=== PATIENT | male | born 1965 | race Caucasian/White ===

== ENCOUNTER → 2018-09-05 | Outpatient (CLI) | payer BC ==
--- NOTE | 2018-09-05 10:41 | PCVCIMAG ---
APPROVED REPORT Study performed: 09/05/2018 08:20:41 EXAM: Comprehensive 2D, Doppler, and color-flow Echocardiogram Patient Location: Echo lab Room #: 2Status: routine BSA: 2.36 HR: 65 bpmBP: 160/100 mmHg Rhythm: NSR Other Information Study Quality: Good Risk Factors: Cardiac Risk Factors: HTN, Hyperlipidemia, Elevated Cor Ca+ Indications CAD Hypertension/HDD 2D Dimensions IVSd: 9.37 (7-11mm)LVOT Diam: 22.65 (18-24mm) LVDd: 52.41 mm PWd: 8.11 (7-11mm)Ascending Ao: 32.79 (22-36mm) LVDs: 31.01 (25-40mm) Left Atrium: 36.59 (27-40mm) Aortic Root: 26.56 mm LV Single Plane 4CH: 58.14 % LV Single Plane 2CH: 55.58 % Biplane EF: 57.8 % Volumes Left Atrial Volume (Systole) Single Plane 4CH: 60.71 mLSingle Plane 2CH: 50.62 mL Biplane LA Volume: 56.00 mLLA ESV Index: 24.00 mL/m2 Aortic Valve AoV Peak Main.: 1.17 m/s AO Peak Gr.: 5.50 mmHgLVOT Max P.02 mmHg LVOT Max V: 1.00 m/s MURPHY Vmax: 3.44 cm2 Mitral Valve E/A Ratio: 1.1 MV Decel. Time: 234.04 ms MV E Max Main.: 0.81 m/s MV A Main.: 0.76 m/s IVRT: 62.28 ms TDI E/Lateral E': 6.23E/Medial E': 9.00 Medial E' Main.: 0.09 m/s Lateral E' Main.: 0.13 m/s Pulmonary Valve PV Peak Main.: 1.31 m/sPV Peak Gr.: 7.06 mmHg Pulmonary Vein P Vein S: 0.43 m/sP Vein A: 0.26 m/s P Vein D: 0.52 m/sP Vein A Dur.: 65.7 msec P Vein S/D Ratio: 0.83 Tricuspid Valve TR Peak Main.: 1.89 m/s TR Peak Gr.: 14.26 mmHg TV Vmax: 0.67 m/sPA Pressure: 21.00 mmHg Left Ventricle The left ventricle is normal size. There is normal LV segmental wall motion. There is normal left ventricular wall thickness. Left ventricular systolic function is normal. The left ventricular ejection fraction is within the normal range. LVEF is 55-60%. The left ventricular diastolic function is normal. Right Ventricle The right ventricle is normal size. The right ventricular systolic function is normal. Atria The left atrium size is normal. The right atrium size is normal. Aortic Valve Aortic valve is trileaflet. No aortic regurgitation is present. There is no aortic valvular stenosis. Mitral Valve The mitral valve is normal in structure. There is no mitral valve regurgitation noted. No evidence of mitral valve stenosis. Tricuspid Valve The tricuspid valve is normal in structure. Trace to mild tricuspid regurgitation with a PA pressure of 21 mmHg No apparent pulmonary hypertension.. Pulmonic Valve The pulmonary valve is normal in structure. Trace pulmonic regurgitation. Great Vessels The aortic root is normal in size. The ascending aorta is normal in size. Aortic arch is normal in caliber. IVC is normal in size and collapses >50% with inspiration. Pericardium There is no pericardial effusion. There is no pleural effusion. <Conclusion> The left ventricle is normal size. LVEF is 55-60%. Aortic valve is trileaflet. The mitral valve is normal in structure. The tricuspid valve is normal in structure. Trace to mild tricuspid regurgitation with a PA pressure of 21 mmHg No apparent pulmonary hypertension.. The pulmonary valve is normal in structure. Trace pulmonic regurgitation. There is no pericardial effusion. There is no pleural effusion.
--- NOTE | 2018-09-06 12:31 | PCVCIMAG ---
APPROVED REPORT Imaging Protocol: Rest Tc-99m/Stress Tc-99m 1 day Study performed: 09/05/2018 09:22:53 Indication: CAD , Palpitations, High Ca Score Patient Location: Out-Patient Stress Nurse: Lori Champagne RN, Teresita Arnett RN IN Tech:Meli Schulerginger [facility] Ht: 6 ft 0 in Wt: 255 lbs BSA: 2.36 m2 HR: 74 bpm BP: 136/69 mmHg BMI: 34.58 Rhythm: Sinus Rhythm Medical History Medical History: HTN, CAD, Former Smoker Medications: Crestor Allergies: PCN Cardiac Risk Factors: Age Pretest Chest Pain Characteristics: No chest pain Exercise History: Physically active Resting Data Rest SPECT myocardial perfusion imaging was performed in supine position 45 minutes following the intravenous injection of 10.8 mCi of Tc-99m Sestamibi. Time of rest injection: 914 Date: 09/05/2018 Administration Route: IV Administration Site: Right Hand Exercise Stress At peak stress, the patient was injected intravenously with 34.4mCi of Tc-99m Sestamibi. Time of stress injection: 1040 Date: 09/05/2018 Administration Route: IV Administration Site: Right Hand Patient continued to exercise for 1 minute(s). Gated Stress SPECT was performed 40 minutes after stress injection. The images were gated to evaluate regional wall motion and calculate left ventricular ejection fraction. Stress Test Details Stress Test: Exercise stress testing was performed using a Ru protocol. HRMax Heart Rate (APMHR): 165 bpm Resting HR: 74 bpmTarget HR (85% APMHR): 140 bpm Max HR Achieved: 157 bpm % of APMHR: 95 Recovery HR: 88 bpm BP Resting BP: 136/69 mmHg Max BP: 178/74 mmHg Recovery BP: 146/69 mmHg ECG Resting ECG: Sinus Rhythm Stress ECG: Sinus Tachycardia Recovery ECG: Sinus Rhythm Clinical Reason for Termination: Maximal effort, Fatigue Stress Symptoms: Dyspnea Exercise duration: 12 min 01 sec Exercise capacity: 13.7 METs Overall Exercise Capacity for Age: Good Symptoms resolved during recovery. Stress ECG Conclusion 1. Echocardiographically negative for ischemia 2. Subjectively negative for ischemia but there was dyspnea with exertion 3. Satisfactory functional capacity Study Data Post stress, the left ventricular ejection was 68%.. SSS: 1 SRS: 1 SDS: 1 TID = 0.82. Perfusion There is a large area of moderately reduced uptake in the entire and apical segment of the inferior wall which is seen on the stress images and minimally improves on the resting images. This area thickens and moves normally and is most consistent with attenuation artifact although ischemia cannot be absolutely ruled out. Wall Motion Normal left ventricular wall motion. Nuclear Conclusion ECG Findings: negative for ischemia Clinical Findings: negative for ischemia although dyspnea present may represent an anginal equivalent Nuclear Findings: negative for ischemia minimal reversibility did not achieve 2 standard deviations Exercise Capacity: normal Left Ventricular Function: normal 1. Low risk study likely with mild reversibility not achieving statistical significance <Conclusion> 1. Echocardiographically negative for ischemia 2. Subjectively negative for ischemia but there was dyspnea with exertion 3. Satisfactory functional capacity
== END | disposition home or self-care (01) ==
LOC: PCVCIMAG 08:16
PROVIDERS: ATTEND Internal Medicine
DX: I25.10 Atherosclerotic heart disease of native coronary artery without angina pectoris (principal); R00.2 Palpitations; R93.1 Abnormal findings on diagnostic imaging of heart and coronary circulation; Z87.891 Personal history of nicotine dependence
CPT/HCPCS: 78452; 93017; 93306; A9500